=== PATIENT | male | born 1935 | race Two or more races ===

== ENCOUNTER 2024-09-22 22:06 | Inpatient (IN) | payer MEDICARE, OTHER ==
[~2024-09-22] VITALS: Ht 162.6 cm; Wt 69.4 kg
[2024-09-22 22:35] LABS: BASOPHILS % (AUTO) 0.5 % (0.0-2.0); HEMATOCRIT 43 % (39-51); HEMOGLOBIN 14.5 g/dL (13.5-17.5); LYMPHOCYTES # (AUTO) 1.2 K/uL (0.8-4.8); LYMPHOCYTES % (AUTO) 20.4 % (20.0-44.0); MEAN CORPUSCULAR HEMOGLOBIN 34 PG (26.0-33.0); MEAN CORPUSCULAR HGB CONC 34 g/dl (31.0-36.0); MEAN CORPUSCULAR VOLUME 100 fL (80-96); MONOCYTES # (AUTO) 0.7 K/uL (0.1-1.30); MONOCYTES % (AUTO) 11.6 % (2.0-12.0); NEUTROPHILS # (AUTO) 3.9 K/uL (1.8-8.9); NEUTROPHILS % (AUTO) 67.5 % (43.0-81.0); PLATELET COUNT (AUTO) 61 K/uL (150-450); RED BLOOD CELL COUNT(AUTO) 4.32 MIL/uL (4.5-6.0); RED CELL DISTRIBUTION WIDTH 14.4 % (11.5-15.0); WHITE BLOOD COUNT (AUTO) 5.8 K/uL (4.3-11.0)
[2024-09-22 22:51] LABS: ALBUMIN 3.5 g/dL (3.4-5.0); BILIRUBIN,DIRECT 0.4 mg/dL (0.0-0.2); BILIRUBIN,TOTAL 0.9 mg/dL (0.2-1.0); CALCIUM, SERUM 8.2 mg/dL (8.5-10.1); CREATININE 2.5 mg/dL (0.6-1.3); POTASSIUM 4.2 mmol/L (3.5-5.1); TOTAL PROTEIN, SERUM 7.9 g/dL (6.4-8.2)
[2024-09-22 22:55] LABS: BASOPHILS % (MANUAL) 0 % (0.0-2.0); EOSINOPHILS % (MANUAL) 0 % (0-4); LYMPHOCYTES % (MANUAL) 22 % (16-48); MONOCYTES % (MANUAL) 8 % (0-11.0); NEUTROPHILS % (MANUAL) 64 (42-76); PLATELET ESTIMATE DECREASED; REACTIVE LYMPHOCYTES 6 % (0-0)
[2024-09-23] MEDS ORDERED: ACETAMINOPHEN 325 MG TABLET PO PRN (00:30)
[2024-09-23] MEDS ORDERED: MAG HYDROX/AL HYDROX/SIMETH 30 ML UDC PO PRN (00:30)
[2024-09-23] MEDS: IV NS 0.9% 500 ML BAG IV ONE (00:30)
[2024-09-23 02:30] VITALS: BP 141/59; TEMP 98.6; O2SAT 97
[2024-09-23] MEDS ORDERED: FERR325T30 PO (03:26)
[2024-09-23] MEDS ORDERED: LORA-259 PO (03:26)
[2024-09-23] MEDS ORDERED: ATOR20TA PO (03:26)
[2024-09-23] MEDS ORDERED: QUET25TA PO (03:26)
[2024-09-23] MEDS ORDERED: RIVA10TA PO (03:26)
[2024-09-23] MEDS ORDERED: LEVO100T9 PO (03:26)
[2024-09-23] MEDS ORDERED: MIRT-119 PO (03:26)
[2024-09-23] MEDS: IV 1/2NS 1000 ML 1,000 ML IV SCH (03:53)
[2024-09-23 04:51] VITALS: BP 141/59; TEMP 98.6; O2SAT 97
[2024-09-23 07:49] LABS: BASOPHILS % (AUTO) 0.3 % (0.0-2.0); HEMATOCRIT 41 % (39-51); HEMOGLOBIN 13.5 g/dL (13.5-17.5); LYMPHOCYTES # (AUTO) 0.6 K/uL (0.8-4.8); MEAN CORPUSCULAR HEMOGLOBIN 33 PG (26.0-33.0); MEAN CORPUSCULAR HGB CONC 33 g/dl (31.0-36.0); MEAN CORPUSCULAR VOLUME 100 fL (80-96); MONOCYTES # (AUTO) 0.5 K/uL (0.1-1.30); NEUTROPHILS # (AUTO) 3.2 K/uL (1.8-8.9); NEUTROPHILS % (AUTO) 75.7 % (43.0-81.0); PLATELET COUNT (AUTO) 56 K/uL (150-450); RED BLOOD CELL COUNT(AUTO) 4.07 MIL/uL (4.5-6.0); RED CELL DISTRIBUTION WIDTH 14.5 % (11.5-15.0); WHITE BLOOD COUNT (AUTO) 4.3 K/uL (4.3-11.0)
[2024-09-23 07:52] LABS: CALCIUM, SERUM 7.6 mg/dL (8.5-10.1); CREATININE 2.4 mg/dL (0.6-1.3); MAGNESIUM 2.3 mg/dL (1.8-2.4); PHOSPHORUS 4.7 mg/dL (2.5-4.9); POTASSIUM 3.5 mmol/L (3.5-5.1)
[2024-09-23 07:59] LABS: THYROID STIMULATING HORMONE 12.74 uIU/mL (0.358-3.74)
[2024-09-23 08:00] VITALS: BP 147/69; TEMP 97.9; O2SAT 96
[2024-09-23] MEDS ORDERED: ACET-73 PO (08:20)
[2024-09-23] MEDS ORDERED: QUET50TA PO (08:20)
[2024-09-23] MEDS ORDERED: GUAI-966 PO (08:20)
[2024-09-23] MEDS ORDERED: TAMS-12 PO (08:20)
[2024-09-23] MEDS ORDERED: CYAN-51 PO (08:20)
[2024-09-23] MEDS ORDERED: DOCU100C36 PO (08:20)
[2024-09-23] MEDS ORDERED: IBUP-1953 PO (08:20)
[2024-09-23] MEDS: PANTOPRAZOLE 40 MG VIAL IV SCH (09:55)
[2024-09-23 10:39] LABS: LYMPHOCYTES % (MANUAL) 9 % (16-48); MONOCYTES % (MANUAL) 8 % (0-11.0); NEUTROPHILS % (MANUAL) 83 (42-76); PLATELET ESTIMATE DECREASED
[2024-09-23] MEDS: LEVOTHYROXINE SODIUM 100 MCG TABLET PO SCH (12:30)
[2024-09-23] MEDS ORDERED: DOCUSATE SODIUM 100 MG CAPSULE PO PRN (12:30)
[2024-09-23 16:00] VITALS: BP 169/92; TEMP 97.9; O2SAT 97
[2024-09-23] MEDS: RIVAROXABAN 10 MG TABLET PO SCH (17:40)
[2024-09-23 20:27] LABS: APPEARANCE,URINE CLEAR (CLEAR); BILIRUBIN,URINE NEGATIVE (NEGATIVE); BLOOD, URINE 2+ Ery/uL (NEGATIVE); COLOR,URINE YELLOW (YELLOW); KETONES,URINE NEGATIVE (NEGATIVE); LEUKOCYTE ESTERASE ,URINE NEGATIVE (NEGATIVE); NITRITE, URINE NEGATIVE (NEGATIVE); PH,URINE 5.5 (5.0-8.0); PROTEIN,URINE 2+ mg/dl (NEGATIVE); UGLUCOSE NEGATIVE (NEGATIVE); UROBILINOGEN,URINE 0.2 EU/dL (0.2)
[2024-09-23 20:34] LABS: CREATININE, URINE 87.5 MG/DL (30.0-125.0); URINE TOTAL PROTEIN 166.9 mg/dL (0-11.9)
[2024-09-23 20:46] LABS: ADD URINE CULTURE NO; BACTERIA,URINE Few /HPF (None Seen); RBC,URINE 0-2 /HPF (0-2); SQUAMOUS EPITHELIAL CELL,UR None Seen /HPF (None Seen); URINE AMORPHOUS URATE Few /HPF (None Seen); WBC,URINE 0-2 /HPF (0-3)
[2024-09-23] MEDS: MIRTAZAPINE 15 MG TABLET PO SCH (21:44)
[2024-09-23] MEDS: ATORVASTATIN 10 MG TABLET PO SCH (21:44)
[2024-09-23] MEDS: QUETIAPINE FUMARATE 25 MG TABLET PO SCH (21:44)
[2024-09-24 06:21] LABS: BASOPHILS % (AUTO) 0.3 % (0.0-2.0); EOSINOPHILS % (AUTO) 0.3 % (0.0-6.0); HEMATOCRIT 44 % (39-51); HEMOGLOBIN 14.9 g/dL (13.5-17.5); LYMPHOCYTES # (AUTO) 0.5 K/uL (0.8-4.8); LYMPHOCYTES % (AUTO) 16.5 % (20.0-44.0); MEAN CORPUSCULAR HEMOGLOBIN 34 PG (26.0-33.0); MEAN CORPUSCULAR HGB CONC 34 g/dl (31.0-36.0); MEAN CORPUSCULAR VOLUME 99 fL (80-96); MONOCYTES # (AUTO) 0.3 K/uL (0.1-1.30); MONOCYTES % (AUTO) 8.7 % (2.0-12.0); NEUTROPHILS # (AUTO) 2.3 K/uL (1.8-8.9); NEUTROPHILS % (AUTO) 74.2 % (43.0-81.0); PLATELET COUNT (AUTO) 59 K/uL (150-450); RED CELL DISTRIBUTION WIDTH 14.4 % (11.5-15.0); WHITE BLOOD COUNT (AUTO) 3.1 K/uL (4.3-11.0)
[2024-09-24 06:35] LABS: ALBUMIN 3.2 g/dL (3.4-5.0); BILIRUBIN,TOTAL 0.8 mg/dL (0.2-1.0); CALCIUM, SERUM 8.2 mg/dL (8.5-10.1); CREATININE 1.9 mg/dL (0.6-1.3); MAGNESIUM 2.3 mg/dL (1.8-2.4); PHOSPHORUS 2.8 mg/dL (2.5-4.9); POTASSIUM 3.5 mmol/L (3.5-5.1); TOTAL PROTEIN, SERUM 7.3 g/dL (6.4-8.2)
[2024-09-24 08:43] LABS: EOSINOPHILS % (MANUAL) 1 % (0-4); LYMPHOCYTES % (MANUAL) 17 % (16-48); MONOCYTES % (MANUAL) 4 % (0-11.0)
[2024-09-24 08:44] LABS: NEUTROPHILS % (MANUAL) 78 (42-76); PLATELET ESTIMATE DECREASED
[2024-09-24] MEDS: CYANOCOBALAMIN 500 MCG TABLET PO SCH (09:32)
[2024-09-24] MEDS: TAMSULOSIN 0.4 MG CAP.SR.24H PO SCH (09:32)
[2024-09-24] MEDS: PANTOPRAZOLE 40 MG TABLET.DR PO SCH (09:32)
[2024-09-24] MEDS: MINERAL OIL/PETROL OINT 396 GM JAR TP SCH (09:33)
[2024-09-24] MEDS: CLOTRIMAZOLE 1% 15 GM TUBE TP SCH (09:33)
[2024-09-24] MEDS: FERROUS SULFATE (325 MG) 325 MG/TAB TABLET PO SCH (09:33)
[2024-09-24] MEDS: QUETIAPINE FUMARATE 25 MG TABLET PO SCH (09:33)
[2024-09-24] MEDS: IV 1/2NS 1000 ML 1,000 ML IV PRN (14:54)
[2024-09-24 20:00] VITALS: BP 147/87; TEMP 98.5; O2SAT 93
[2024-09-25 07:43] LABS: CALCIUM, SERUM 8.1 mg/dL (8.5-10.1); CREATININE 1.4 mg/dL (0.6-1.3); POTASSIUM 4.1 mmol/L (3.5-5.1)
[2024-09-25 07:44] LABS: BASOPHILS % (AUTO) 0.3 % (0.0-2.0); EOSINOPHILS % (AUTO) 0.3 % (0.0-6.0); HEMATOCRIT 44 % (39-51); HEMOGLOBIN 14.6 g/dL (13.5-17.5); LYMPHOCYTES # (AUTO) 0.6 K/uL (0.8-4.8); LYMPHOCYTES % (AUTO) 19.3 % (20.0-44.0); MEAN CORPUSCULAR HEMOGLOBIN 34 PG (26.0-33.0); MEAN CORPUSCULAR HGB CONC 33 g/dl (31.0-36.0); MEAN CORPUSCULAR VOLUME 101 fL (80-96); MONOCYTES # (AUTO) 0.4 K/uL (0.1-1.30); MONOCYTES % (AUTO) 13.2 % (2.0-12.0); NEUTROPHILS % (AUTO) 66.9 % (43.0-81.0); PLATELET COUNT (AUTO) 59 K/uL (150-450); RED BLOOD CELL COUNT(AUTO) 4.35 MIL/uL (4.5-6.0); RED CELL DISTRIBUTION WIDTH 14.2 % (11.5-15.0)
[2024-09-25 10:03] LABS: ANISOCYTOSIS 1+; LYMPHOCYTES % (MANUAL) 21 % (16-48); MONOCYTES % (MANUAL) 8 % (0-11.0); NEUTROPHILS % (MANUAL) 71 (42-76); PLATELET ESTIMATE DECREASED
[2024-09-25 17:09] VITALS: BP 154/63; TEMP 98.1; O2SAT 95
[2024-09-25 20:00] VITALS: BP 146/73; TEMP 99; O2SAT 98
[2024-09-26 06:53] LABS: CALCIUM, SERUM 8.1 mg/dL (8.5-10.1); CREATININE 1.7 mg/dL (0.6-1.3); POTASSIUM 3.5 mmol/L (3.5-5.1)
[2024-09-26 08:00] VITALS: BP 138/63; TEMP 97.9; O2SAT 97
[2024-09-26] MEDS: D5W IV ONE (08:03)
[2024-09-26 09:07] LABS: PTH, INTACT 40 pg/mL (15-65)
[2024-09-26 11:12] LABS: *SPE A/G RATIO 0.8 (0.7-1.7); *SPE ALBUMIN 3.1 g/dL (2.9-4.4); *SPE ALPHA-1-GLOBULIN 0.3 g/dL (0.0-0.4); *SPE ALPHA-2-GLOBULIN 0.7 g/dL (0.4-1.0); *SPE BETA GLOBULIN 0.9 g/dL (0.7-1.3); *SPE GLOBULIN, TOTAL 3.7 g/dL (2.2-3.9); *SPE M-SPIKE Not Observed g/dL (Not Observed); *SPE PROTEIN TOTAL 6.8 g/dL (6.0-8.5); *SPEGAMMA GLOBULIN 1.8 g/dL (0.4-1.8)
[2024-09-26 16:27] VITALS: BP 99/65; TEMP 97.2; O2SAT 91
== END 2024-09-26 16:42 | disposition home health service (06) | DRG 640 ==
LOC: ER 22:08 → MED 09-23 02:58
PROVIDERS: ADMIT Nurse Practitioner Acute Care; ATTEND Nurse Practitioner Acute Care
DX: E86.0 Dehydration (principal); N17.0 Acute kidney failure with tubular necrosis; I82.411 Acute embolism and thrombosis of right femoral vein; F02.83 Dementia in other diseases classified elsewhere, unspecified severity, with mood disturbance; M62.82 Rhabdomyolysis; E87.0 Hyperosmolality and hypernatremia; Z88.6 Allergy status to analgesic agent; E03.9 Hypothyroidism, unspecified; N40.0 Benign prostatic hyperplasia without lower urinary tract symptoms; E78.5 Hyperlipidemia, unspecified; F32.A Depression, unspecified; N18.9 Chronic kidney disease, unspecified; I12.9 Hypertensive chronic kidney disease with stage 1 through stage 4 chronic kidney disease, or unspecified chronic kidney disease; Z79.01 Long term (current) use of anticoagulants; Z79.899 Other long term (current) drug therapy; G30.9 Alzheimer's disease, unspecified; R62.7 Adult failure to thrive; Z78.1 Physical restraint status; Z79.890 Hormone replacement therapy; M89.8X9 Other specified disorders of bone, unspecified site; D69.6 Thrombocytopenia, unspecified; R53.1 Weakness
CPT/HCPCS: 36415; 70450-TC; 71045-TC; 76770-TC; 80048-TC; 80053-TC; 80076-TC; 81001; 82550-TC; 82553; 82570-TC; 83735-TC; 83935-TC; 83970; 84100-TC; 84155; 84165; 84300-TC; 84443-TC; 85025-TC; 93970-TC; 97110-TC; 97116-TC; 97530-TC; A4223; G0378; J2470; J3490; J7060